=== PATIENT | female | born 1940 | race Caucasian/White ===

== ENCOUNTER → 2016-07-08 | Outpatient (CLI) | payer MEDICARE ==
[~2016-07-08] MED LIST: ALLOPURINOL100 MG PO; BACTROBAN N1 GM/TUBE TOP; BUMEX1 MG PO; CALCITRIOL0.25 MCG PO; CARVEDILOL25 MG PO; COUMADIN ** IA3 MG PO; FISH OIL 1,0001 EACH PO; HUMALOG100 UNIT/3 SUB-Q; IRON325 M1 PO; ISOSORBIDE MONO30 MG PO; KEFLEX500 MG; LEVOTHROID (S112 MCG PO; NORCO 5-325 TA1 EACH PO; PRAVACHOL80 MG PO; VITAMIN D1000 UNIT PO; VITAMIN E400 UNI2 PO; ZAROXOLYN5 MG PO
== END | disposition disaster alternative care site (69) ==
LOC: GAMB 09:45
DX: M25.551 Pain in right hip (principal); I50.9 Heart failure, unspecified; E10.9 Type 1 diabetes mellitus without complications; Z79.82 Long term (current) use of aspirin; Z79.891 Long term (current) use of opiate analgesic; Z88.1 Allergy status to other antibiotic agents; Z88.8 Allergy status to other drugs, medicaments and biological substances; W19.XXXA Unspecified fall, initial encounter
CPT/HCPCS: A0425; A0427

== ENCOUNTER → 2016-07-15 | Outpatient (CLI) | payer MEDICARE | END | disposition disaster alternative care site (69) | LOC: GAMB 08:32 | DX: K59.00 Constipation, unspecified (principal); K44.9 Diaphragmatic hernia without obstruction or gangrene; R10.9 Unspecified abdominal pain; R14.0 Abdominal distension (gaseous); I48.2 Chronic atrial fibrillation; E03.9 Hypothyroidism, unspecified; I12.9 Hypertensive chronic kidney disease with stage 1 through stage 4 chronic kidney disease, or unspecified chronic kidney disease; E11.9 Type 2 diabetes mellitus without complications; N18.3 Chronic kidney disease, stage 3 (moderate); Z79.899 Other long term (current) drug therapy; Z88.1 Allergy status to other antibiotic agents; Z88.8 Allergy status to other drugs, medicaments and biological substances | CPT/HCPCS: A0425; A0429 ==

== ENCOUNTER → 2016-07-30 | Outpatient (CLI) | payer MEDICARE | END | disposition disaster alternative care site (69) | LOC: GRAD 12:38 | DX: R13.10 Dysphagia, unspecified (principal) | CPT/HCPCS: G8996; G8997; G8998 ==

== ENCOUNTER → 2016-08-06 | Outpatient (CLI) | payer MEDICARE | END | disposition disaster alternative care site (69) | LOC: GAMB 09:18 | DX: R53.1 Weakness (principal) | CPT/HCPCS: A0425; A0429 ==